=== PATIENT | female | born 1945 | race Caucasian/White ===

== ENCOUNTER 2016-09-30 09:22 | Day surgery (SDC) | payer BC ==
[2016-09-30] VITALS (7 sets, daily range): BP systolic 117–138; BP diastolic 68–99; PULSE 69–80; RESP 16–33; Ht 157.5 cm; Wt 81.8 kg
[~2016-09-30] VITALS: Ht 157.5 cm; Wt 81.8 kg
[~2016-09-30 09:22] MED LIST: CEFAZOLIN 1 GM INJ ONE
[2016-09-30] MEDS ORDERED: AMLO-147 PO ×2 (09:51→10:02)
[2016-09-30] MEDS ORDERED: OMEP20CA16 PO (09:53)
[2016-09-30] MEDS ORDERED: TRAM-40 PO (10:04)
[2016-09-30] MEDS ORDERED: METF500T9 PO (10:04)
[2016-09-30] MEDS ORDERED: PROP40TA4 PO (10:06)
[2016-09-30] MEDS ORDERED: BUPIVACAINE 0.25% (MPF) 30 ML INJ ONE (10:30)
[2016-09-30] MEDS ORDERED: LIDOCAINE 2% (MDV) 20 ML INJ ONE (10:30)
[2016-09-30] MEDS ORDERED: ONDANSETRON 4 MG INJ ONE (10:51)
[2016-09-30] MEDS ORDERED: KETOROLAC 30 MG INJ ONE (10:51)
[2016-09-30] MEDS ORDERED: LIDOCAINE 100 MG SYRINGE ONE (10:51)
[2016-09-30] MEDS ORDERED: PROPOFOL 20 ML ONE (10:51)
[2016-09-30] MEDS ORDERED: hydrALAzine 20 MG INJ ONE (10:59)
[2016-09-30] MEDS ORDERED: SOD CHLORIDE 0.9% 1,000 ML IV SCH (11:00)
[2016-09-30] MEDS ORDERED: CEFAZOLIN 2 GM/50 ML (PMX) 50 ML IVPB SCH (11:00)
[2016-09-30] MEDS ORDERED: LIDOCAINE 2% (MDV) 20 ML INJ INJ ONE (11:05)
[2016-09-30] MEDS ORDERED: BUPIVACAINE 0.25% (MPF) 30 ML INJ INJ ONE (11:05)
--- NOTE | 2016-09-30 11:29 | OPR ---
Date/Time of Note Date/Time of Note DATE: 09/30/16 TIME: 11:29 Operative Report Procedure Date: Sep 30, 2016 Preoperative Diagnosis left neck mass Postoperative Diagnosis same Operation Performed excision of left neck mass 4 cm mass 4 cm incision localized adjacent transfer with the use of skin flaps 8 sq cm defect Surgeon: Tad CARNES Specimens left neck mass Tad CARNES Sep 30, 2016 11:29
[2016-09-30] MEDS ORDERED: MIDAZOLAM 1 MG/ML 2 ML INJ IV PRN (11:30)
[2016-09-30] MEDS ORDERED: LABETALOL HCL 20MG INJ IV PRN (11:30)
[2016-09-30] MEDS ORDERED: HYDROmorphONE (0.2 MG/ML) 10ML SYG IV PRN ×3 (11:30)
[2016-09-30] MEDS ORDERED: TRIMETHOBENZAMIDE 100 MG/ML VIAL IM PRN (11:30)
[2016-09-30] MEDS ORDERED: FENTAnyl 50 MCG/ML VIAL IV PRN ×3 (11:30)
[2016-09-30] MEDS ORDERED: ACETAMINOPHEN/CODEINE #3 TAB PO ONE (11:30)
[2016-09-30] MEDS ORDERED: MEPERIDINE 25 MG INJ IV PRN (11:30)
[2016-09-30] MEDS ORDERED: ONDANSETRON 4 MG INJ IV PRN (11:30)
[2016-09-30] MEDS ORDERED: DIPHENHYDRAMINE 50 MG INJ IV PRN (11:30)
[2016-09-30] MEDS ORDERED: hydrALAzine 20 MG INJ IV PRN (11:30)
[2016-09-30] MEDS ORDERED: EPHEDrine SULFATE 50 MG/5 ML SYG IV PRN (11:30)
--- NOTE | 2016-09-30 11:35 | OPR ---
DATE OF OPERATION: 09/30/2016 INDICATION: This is a 70-year-old female with a left neck mass. She requests surgical excision. R isks, alternatives, benefits, and personnel were discussed with the patient. Patient expressed unde rstanding and consents to the operation. PREOPERATIVE DIAGNOSIS: Left neck mass. POSTOPERATIVE DIAGNOSIS: Left neck mass. OPERATIONS PERFORMED: 1. Excision of left neck mass, with 4 cm size mass and 4 cm size incision. 2. Localized adjacent tissue transfer with the use of skin flaps with 8 square cm defect. SURGEON: Francisco Logan MD SPECIMEN: Left neck mass. COMPLICATIONS: None. ANESTHESIA: MAC. PROCEDURE: The patient was taken to the OR and prepped and draped in the usual sterile fashion. Ortega rgical timeout was performed. IV antibiotics were given. Local anesthesia was infiltrated undernea th the mass. Elliptical incision was made around the mass with a 15 blade. Dissection cautery was carried down to the mass and circumferentially excised. There was good hemostasis. There was a lar ge tissue defect localized adjacent tissue transfer with the use of skin flaps to perform multilayer closure with interrupted 3-0 Vicryl and running 4-0 Monocryl. Dry dressings were applied. Dictated By: FRANCISCO MEZA/JOSE LUIS Conf#: [id number] DID#: [id number]
== END 2016-09-30 13:07 | disposition home or self-care (01) ==
LOC: SDS 09:22
PROVIDERS: ATTEND Surgery
DX: C44.41 Basal cell carcinoma of skin of scalp and neck (principal); E11.9 Type 2 diabetes mellitus without complications; I10 Essential (primary) hypertension; E78.5 Hyperlipidemia, unspecified; E66.9 Obesity, unspecified; Z68.33 Body mass index [BMI] 33.0-33.9, adult; I50.9 Heart failure, unspecified
CPT/HCPCS: 14040; 82962; 88307; J0360; J0690; J1885; J2001; J2405; Z7512; Z7610